=== PATIENT | male | born 1960 | race Caucasian/White ===

== ENCOUNTER → 2018-06-08 | Outpatient (CLI) | payer OTHER ==
[~2018-06-08] MED LIST: CEPH500C PO; CHOLESTEROL MED; OMEP-10 GT
--- NOTE | 2018-06-08 16:15 | Diagnostic Imaging Report ---
Indication: Evaluate for osteoporosis. Comparison: No prior studies are available for comparison. Exam: Bone mineral analysis of the lumbar spine and both hips was performed. Findings: Bone mineral density of the lumbar spine is 1.221 with T score of -0.2. Bone mineral density of the left femoral neck is 1.113 with T score 0.3. Bone mineral density right femoral neck is 0.995 with T score of -0.6. Impression: Findings consistent with normal bone mineral density of the lumbar spine and bilateral femoral necks. Dictated by: Dictated on workstation # [id number]
== END ==
LOC: RAD 09:17
PROVIDERS: ATTEND Internal Medicine
DX: M81.0 Age-related osteoporosis without current pathological fracture (principal)
CPT/HCPCS: 77080

== ENCOUNTER → 2018-10-02 | Outpatient (CLI) | payer OTHER ==
--- NOTE | 2018-10-02 09:46 | Diagnostic Imaging Report ---
INDICATION: Six week postop lumbar surgery. COMPARISON: None FINDINGS: Frontal and lateral radiographic views of the lumbar spine were obtained and show postsurgical changes of previous posterior fusion of L4 and L5. Bilateral interpedicular screws and posterior fusion rods are identified and appear to be intact. Interpedicular screws appear to be well-seated within their respective vertebral bodies. Intervertebral disc spacer material is also noted at L4-L5 and appears appropriately positioned. No unexpected radiopaque foreign bodies are seen. Static alignment demonstrates mild Grade 1 anterolisthesis of L4-L5. There is no prior available to confirm stability. There is no evidence of jumped facets. Vertebral body heights are maintained. There is no evidence of fracture. Mild multilevel degenerative changes are noted. Note is also made of calcified aortic atherosclerosis. IMPRESSION: 1. Postsurgical changes at L4-L5 as described above. No evidence of hardware fracture or failure. 2. Mild Grade 1 anterolisthesis at L4-5. 3. No evidence of acute fracture. Dictated by: Dictated on workstation # [id number]
== END ==
LOC: RAD 08:50
DX: M43.16 Spondylolisthesis, lumbar region (principal); M47.816 Spondylosis without myelopathy or radiculopathy, lumbar region; Z98.1 Arthrodesis status
CPT/HCPCS: 72100

== ENCOUNTER → 2018-10-16 | Outpatient (CLI) | payer OTHER ==
--- NOTE | 2018-10-16 09:32 | Diagnostic Imaging Report ---
INDICATION: Aortic atherosclerosis TECHNIQUE: Grayscale sonographic images of the abdominal aorta. CORRELATION STUDY: None FINDINGS: Portions of the aorta are partially obscured by overlying bowel gas. Abdominal Aorta Proximal: 2.0 x 1.9 cm, partially obscured by overlying bowel. Mid: 1.8 x 2.3 cm Distal: 1.6 x 1.8 cm Common Iliac Arteries Right MAMI: 1.0 x 1.9 cm Left MAMI: Not visualized, obscured by overlying bowel. IMPRESSION: 1. Negative for abdominal aortic aneurysm. Dictated by: Dictated on workstation # [id number]
== END ==
LOC: RAD 08:16
PROVIDERS: ATTEND Internal Medicine
DX: I70.0 Atherosclerosis of aorta (principal)
CPT/HCPCS: 76775

== ENCOUNTER 2018-11-11 19:39 | Inpatient (IN) | payer OTHER ==
[~2018-11-11] VITALS: Ht 182.9 cm; Wt 111.3 kg
--- NOTE | 2018-11-11 19:43 | NUR ---
Nursing staff notified of cardiac symptoms.
[2018-11-11] MEDS ORDERED: ENOXAPARIN 80 MG/0.8 ML (LOVENOX) SYR SC ONE (20:00)
[2018-11-11] MEDS ORDERED: ASPIRIN 81 MG CHEW (CHILDREN'S ASA) PO ONE (20:00)
[2018-11-11] MEDS ORDERED: DILTIAZEM 25 MG/5 ML INJ (CARDIZEM) VIAL IVP ONE (20:00)
[2018-11-11] MEDS ORDERED: DILTIAZEM INJECTION 125 MG in NS (IVPB) 100 ML IV SCH (20:00)
[2018-11-11] MEDS ORDERED: DILTIAZEM 125 MG/25 ML IV (CARDIZEM) IV ONE (20:02)
[2018-11-11 20:04] LABS: BASOPHILS % (AUTO) 0 % (0-10); EOSINOPHILS # (AUTO) 0.1 10^3/uL (0.0-0.3); EOSINOPHILS % (AUTO) 2 % (0-10); HEMATOCRIT 45 % (40-54); HEMOGLOBIN 15.3 G/DL (13.3-17.7); LYMPHOCYTES # (AUTO) 2.8 X 10^3 (1.0-4.0); LYMPHOCYTES % (AUTO) 34 % (12-44); MEAN CORPUSCULAR HEMOGLOBIN 31 PG (25-34); MEAN CORPUSCULAR HGB CONC 34 G/DL (32-36); MEAN CORPUSCULAR VOLUME 89 FL (80-99); MEAN PLATELET VOLUME 9.1 FL (7.4-10.4); MONOCYTES # (AUTO) 0.8 X 10^3 (0.0-1.0); MONOCYTES % (AUTO) 10 % (0-12); NEUTROPHILS # (AUTO) 4.5 X 10^3 (1.8-7.8); NEUTROPHILS % (AUTO) 54 % (42-75); PLATELET COUNT 219 10^3/uL (130-400); RED CELL DISTRIBUTION WIDTH 13.6 % (10.0-14.5); WHITE BLOOD COUNT 8.3 10^3/uL (4.3-11.0)
[2018-11-11] MEDS ORDERED: NS (IVPB) 100 ML ONE (20:04)
--- NOTE | 2018-11-11 20:11 | Diagnostic Imaging Report ---
INDICATION: Irregular heart rate EXAMINATION: Upright portable chest was obtained. FINDINGS: Cardiomegaly with no failure. The lungs are clear. There is no effusion or pneumothorax. There is no acute bony abnormality. IMPRESSION: Cardiomegaly. Dictated by: Dictated on workstation # [id number]
[2018-11-11 20:22] LABS: ALANINE AMINOTRANSFERASE 31 U/L (0-55); ALBUMIN 4.7 GM/DL (3.2-4.5); ALKALINE PHOSPHATASE 98 U/L (40-136); BILIRUBIN,TOTAL 0.5 MG/DL (0.1-1.0); BUN/CREATININE RATIO 13; CARBON DIOXIDE 19 MMOL/L (21-32); CHLORIDE 107 MMOL/L (98-107); CREATINE KINASE 134 U/L (30-200); CREATININE SERUM 0.97 MG/DL (0.60-1.30); GFR ESTIMATED > 60; GLUCOSE 103 MG/DL (70-105); MAGNESIUM 2.4 MG/DL (1.8-2.4); POTASSIUM 3.9 MMOL/L (3.6-5.0); SODIUM 143 MMOL/L (135-145); TOTAL PROTEIN 8.2 GM/DL (6.4-8.2)
[2018-11-11 20:28] LABS: INR 0.9 (0.8-1.4); PROTHROMBIN TIME PATIENT 12.9 SEC (12.2-14.7)
[2018-11-11 20:30] LABS: MYOGLOBIN SERUM 65.4 NG/ML (10.0-92.0)
[2018-11-11 20:42] LABS: CREATINE KINASE MB 3.7 NG/ML (<6.6); TSH (THYROID ANALYZER) 4.46 UIU/ML (0.35-4.94)
[2018-11-11] MEDS ORDERED: ENOXAPARIN 30 MG/0.3 ML (LOVENOX) SYR ONE (20:55)
[2018-11-11] MEDS ORDERED: ENOXAPARIN 30 MG/0.3 ML (LOVENOX) SYR SC ONE (21:00)
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
--- NOTE | 2018-11-11 22:32 | NUR ---
OLEG BRAVO Frieda admitted to room CU10-1, with an admitting diagnosis of Af RVR, on 11/11/18 from ED via Cart, accompanied by daughter.OLEG BRAVO introduced to surroundings, call light, bed controls, phone, TV, temperature control, lights, meal times, smoking policy, visitor policy, side rail policy, bathrooms and showers. Patient Rights given to patient in the handbook. OLEG BRAVO verbalizes understanding that [facility] is not responsible for the loss or damage to any personal effects or valuables that are kept in the patients possession during their hospitalization. The following Patient Care Plans were discussed with the patient: Discharge Planning, pain management,respiratory distress, and room orientation. OLEG BRAVO verbalizes understanding of Interdisciplinary Patient Education. Patient and/or family were informed about the Rapid Response Team and its purpose.
[2018-11-11 22:39] VITALS: BP 127/83
[2018-11-11] MEDS ORDERED: CATHETER FLUSH 10 ML SYR IV PRN (22:45)
[2018-11-11] MEDS ORDERED: DILTIAZEM 125 MG/NS 100 ML IV SCH ×2 (22:45)
[2018-11-11 23:00] VITALS: BP 116/81
[2018-11-11 23:45] VITALS: BP 116/71
[2018-11-12] VITALS (12 sets, daily range): BP systolic 108–117; BP diastolic 71–84
--- NOTE | 2018-11-12 01:58 | ED Cardiac General ---
History of Present Illness General Chief Complaint: Cardiac/General Problems Stated Complaint: NEW ONSET A FIB WITH RVR Nursing Triage Note: PT PRESENTS FROM HOME AMBULATORY, STATES HIS HEART BEGAN TO RACE AROUND 30 MINUTES AGO, SHORTLY AFTER DINNER. PT DENIES A PAST CARDIAC HX. HEART RATE NOTED 172 WHEN PLACED ON MONITORE. Source: patient Exam Limitations: no limitations History of Present Illness Date Seen by Provider: Nov 11, 2018 Time Seen by Provider: 19:45 Initial Comments PT ARRIVES VIA POV FROM HOME, WITH DAUGHTER C/O HEART RACING--BEGAN 30-45 MINUTES AGO, AFTER EATING DINNER NO CHEST PAIN NO SHORTNESS OF BREATH NO NAUSEA NO SWELLING IN LEGS/ FEET OR PAIN IN CALVES, OTHER THAN CHRONIC LEFT ANKLE SWELLING DUE TO OLD FRACTURE OF THAT ANKLE C/O VERY SLIGHT DIZZINESS NO COUGH OR RECENT ILLNESS OR FEVER PULSE WAS 152 AT HOME, WITH BP 140/90 NO HISTORY OF CARDIAC PROBLEMS, BUT STATES HE HAS HAD THIS FEELING OF HIS HEART RACING A FEW TIMES IN THE PAST, BUT NEVER SOUGHT CARE. PT HAD BACK SURGERY 09/16/18 IN [facility]--PT IS STILL WEARING HIS HOSPITAL ID BRACELET FROM THAT HOSPITALIZATION--STATES HE WAS TOLD HE NEEDED TO WEAR IT ALL THE TIME PT IS SCHEDULED TO HAVE LEFT KNEE SURGERY BY DR. KOENIG THIS Tuesday11/14/18. PCP: DR. MORTON ORTHOPEDIC SURGEON: --LOCALLY Allergies and Home Medications Allergies Coded Allergies: No Known Drug Allergies (Unverified , 08/18/10) Home Medications Cephalexin Monohydrate 500 Mg Capsule, 1 EACH PO TID Prescribed by: DESIRE HAYNES on 09/01/14 1131 Patient Home Medication List Home Medication List Reviewed: Yes Review of Systems Review of Systems Constitutional: no symptoms reported; No diaphoresis EENTM: No Symptoms Reported Respiratory: No Symptoms Reported Cardiovascular: See HPI; Denies Chest Pain, Denies Edema; Irregular Heart Rate , Lightheadedness, Palpitations; Denies Syncope Gastrointestinal: No Symptoms Reported Genitourinary: No Symptoms Reported Musculoskeletal: see HPI Skin: no symptoms reported Psychiatric/Neurological: No Symptoms Reported Endocrine: No Symptoms Reported Hematologic/Lymphatic: No Symptoms Reported Past Yvahblh-Cizxjv-Aoucpl Hx Patient Social History Alcohol Use: Occasionally Uses Recreational Drug Use: No Smoking Status: Never a Smoker Type Used: Smokeless Tobacco (QUIT CHEWING TOBACCO > 20 YEARS AGO) Recent Foreign Travel: No Contact w/Someone Who Travel: No Recent Infectious Disease Expo: No Immunizations Up To Date Date of Pneumonia Vaccine: Jun 13, 2018 Date of Influenza Vaccine: Jun 13, 2018 Seasonal Allergies Seasonal Allergies: No Past Medical History Surgeries: Yes (LUMBAR SPINE SURGERY 09/16/18 IN [facility]; MULTIPLE BILATERAL KNEE SCOPES; SCREENING COLONOSCOPY 2010) Orthopedic Respiratory: No Cardiac: Yes High Cholesterol Neurological: No Genitourinary: No Gastrointestinal: Yes Gastroesophageal Reflux Musculoskeletal: Yes (LUMBAR SPINE SURGERY 09/16/18; MULTIPLE BILATERAL KNEE SCOPES; CHRONIC KNEE PAIN; LEFT ANKLE FX) Chronic Back Pain, Fractures Endocrine: No HEENT: No Cancer: No Psychosocial: No Integumentary: No Blood Disorders: No Family Medical History Diabetes mellitus 19 MOTHER, Onset:Unknown FH: CVA (cerebrovascular accident) 19 MOTHER, Onset:Unknown FH: prostate cancer 19 FATHER, , Age:69, Onset:60 years & older FHx: neuropathy G8 SISTER, Onset:Unknown Physical Exam Vital Signs Vital Signs - First Documented 11/11/18 11/11/18 19:45 19:46 Temp 98.4 Pulse 172 Resp 22 B/P (MAP) 149/96 (113) Pulse Ox 96 O2 Delivery Room Air O2 Flow Rate 2.00 Capillary Refill : Less Than 3 Seconds Height, Weight, BMI Height: 6'0.00" Weight: 245lbs. 7.0oz. 111.158290mp; 33.3 BMI Method:Stated General Appearance: No Apparent Distress, WD/WN, Other (WEARING A BACK BRACE. ) HEENT: PERRL/EOMI Neck: Full Range of Motion, Normal Inspection, Non Tender, Supple; No Carotid Bruit, No JVD Respiratory: Normal Breath Sounds, No Accessory Muscle Use, No Respiratory Distress Cardiovascular: No JVD, No Murmur, Normal Peripheral Pulses, Irregularly Irregular, Tachycardia Gastrointestinal: Non Tender, Soft Extremity: Normal Capillary Refill, Normal Inspection, Normal Range of Motion, Non Tender, No Calf Tenderness, Pedal Edema (TRACE ON LEFT--CHRONIC, PER PT) Neurologic/Psychiatric: Alert, Oriented x3, No Motor/Sensory Deficits, Normal Mood/Affect, report programmer II-XII Norm as Tested Skin: Normal Color, Warm/Dry Progress/Results/Core Measures Results/Orders Lab Results Laboratory Tests Test 11/11/18 19:58 Range/Units White Blood Count 8.3 4.3-11.0 10^3/uL Red Blood Count 5.01 4.35-5.85 10^6/uL Hemoglobin 15.3 13.3-17.7 G/DL Hematocrit 45 40-54 % Mean Corpuscular Volume 89 80-99 FL Mean Corpuscular Hemoglobin 31 25-34 PG Mean Corpuscular Hemoglobin Concent 34 32-36 G/DL Red Cell Distribution Width 13.6 10.0-14.5 % Platelet Count 219 130-400 10^3/uL Mean Platelet Volume 9.1 7.4-10.4 FL Neutrophils (%) (Auto) 54 42-75 % Lymphocytes (%) (Auto) 34 12-44 % Monocytes (%) (Auto) 10 0-12 % Eosinophils (%) (Auto) 2 0-10 % Basophils (%) (Auto) 0 0-10 % Neutrophils # (Auto) 4.5 1.8-7.8 X 10^3 Lymphocytes # (Auto) 2.8 1.0-4.0 X 10^3 Monocytes # (Auto) 0.8 0.0-1.0 X 10^3 Eosinophils # (Auto) 0.1 0.0-0.3 10^3/uL Basophils # (Auto) 0.0 0.0-0.1 10^3/uL Prothrombin Time 12.9 12.2-14.7 SEC INR Comment 0.9 0.8-1.4 Activated Partial Thromboplast Time 30 24-35 SEC Sodium Level 143 135-145 MMOL/L Potassium Level 3.9 3.6-5.0 MMOL/L Chloride Level 107 98-107 MMOL/L Carbon Dioxide Level 19 L 21-32 MMOL/L Anion Gap 17 H 5-14 MMOL/L Blood Urea Nitrogen 13 7-18 MG/DL Creatinine 0.97 0.60-1.30 MG/DL Estimat Glomerular Filtration Rate > 60 BUN/Creatinine Ratio 13 Glucose Level 103 70-105 MG/DL Calcium Level 10.0 8.5-10.1 MG/DL Corrected Calcium 8.5-10.1 MG/DL Magnesium Level 2.4 1.8-2.4 MG/DL Total Bilirubin 0.5 0.1-1.0 MG/DL Aspartate Amino Transf (AST/SGOT) 27 5-34 U/L Alanine Aminotransferase (ALT/SGPT) 31 0-55 U/L Alkaline Phosphatase 98 40-136 U/L Total Creatine Kinase 134 30-200 U/L Creatine Kinase MB 3.7 <6.6 NG/ML Myoglobin 65.4 10.0-92.0 NG/ML Troponin I < 0.028 <0.028 NG/ML B-Type Natriuretic Peptide 12.5 <100.0 PG/ML Total Protein 8.2 6.4-8.2 GM/DL Albumin 4.7 H 3.2-4.5 GM/DL TSH [place] Testing 4.46 0.35-4.94 UIU/ML My Orders Orders - CT STEWART DO Saline Lock/Iv-Start (11/11/18 19:54) Aspirin Chewable Tablet (Baby Aspirin Ch (11/11/18 20:00) BNP (11/11/18:54) Cbc With Automated Diff (11/11/18:54) Comprehensive Metabolic Panel (11/11/18:54) Creatine Kinase (11/11/18:54) Creatine Kinase Mb (11/11/18 19:54) Magnesium (11/11/18:54) Protime With Inr (11/11/18:54) Partial Thromboplastin Time (11/11/18:54) Thyroid Analyzer (11/11/18:54) Troponin I (11/11/18 19:54) I-Stat Bedside Testing (11/11/18 19:54) Chest 1 View, Ap/Pa Only (11/11/18 19:54) Ekg Tracing (11/11/18:54) Cardiac Profile 1 (11/11/18 19:54) Myoglobin Serum (11/11/18:54) O2 (11/11/18 19:54) Monitor-Rhythm Ecg Trace Only (11/11/18 19:54) Saline Lock/Iv-Start (11/11/18 19:54) Enoxaparin Injection (Lovenox Injection) (11/11/18 20:00) Diltiazem Injection (Cardizem Injection) (11/11/18 20:00) Ns (Ivpb) (Sodium C... W/Diltiazem Injec (11/11/18 20:00) Diltiazem Iv For Drip (Cardizem Iv For D (11/11/18 20:02) Ns (Ivpb) (Sodium Chloride 0.9% Ivpb Bag (11/11/18 20:04) Ekg Tracing (11/11/18 20:35) Medications Given in ED Current Medications Medications Dose Ordered Sig/Kristyn Route Start Time Stop Time Status Last Admin Dose Admin Aspirin 325 mg ONCE ONCE PO 11/11/18 20:00 11/11/18 20:01 DC 11/11/18 20:05 325 MG Diltiazem HCl 20 mg ONCE ONCE IVP 11/11/18 20:00 11/11/18 20:01 DC 11/11/18 20:07 20 MG Enoxaparin Sodium 80 mg ONCE ONCE SC 11/11/18 20:00 11/11/18 20:01 DC 11/11/18 20:13 80 MG Vital Signs/I&O 11/11/18 11/11/18 11/11/18 19:45 19:46 20:28 Temp 98.4 Pulse 172 172 Resp 22 B/P (MAP) 149/96 (113) Pulse Ox 96 97 O2 Delivery Room Air Nasal Cannula O2 Flow Rate 2.00 Blood Pressure Mean: 90 Progress Progress Note : Progress Note HEART RATE IN 170'S ON ARRIVAL, WITH ATRIAL FIB/RVR ON MONITOR PT GIVEN CARDIZEM BOLUS AND PLACED ON CARDIZEM DRIP, WITH DECREASE IN HEART RATE TO 80-90'S, BUT STILL IN ATRIAL FIBRILLATION BP DOWN TO 110'S/ 70'S NO DETERIORATION IN PT'S CONDITION DURING ER STAY Initial ECG Impression Date: Nov 11, 2018 Initial ECG Impression Time: 19:51 Initial ECG Rate: 169 Initial ECG Rhythm: A Fib/Flutter (ATRIAL FIBRILLATION WITH RVR) Initial ECG Impression: Atrial Fibrillation w/RVR Initial ECG Comparisson: No Previous ECG Available EKG : EKG Time: 20:20 Rate: 105 Rhythm: A Fib/Flutter ECG Impression: Atrial Fibrillation Diagnostic Imaging Comments CXR--CARDIOMEGALY, NO ACUTE PROCESS, PER RADIOLOGIST REPORT AT 2019 Departure Communication (Admissions) 2034--SPOKE WITH DR. MOLINA, FIRE PATROL CHEMISTRY SPECIALIST. AGREES WITH PLAN OF CARE, WILL SEE PT IN CONSULT 2038--SPOKE WITH DR. BARRAZA, HOSPITALIST, ACCEPTS PT FOR ADMIT. Impression Primary Impression: NEW ONSET ATRIAL FIBRILLATION WITH RVR Disposition: ADMITTED INPATIENT Condition: Improved Admissions Decision to Admit Reason: Admit from ER (General) Decision to Admit/Date: Nov 11, 2018 Time/Decision to Admit Time: 20:40 Departure-Patient Inst. Referrals: ENID MORTON DO (PCP/Family) Primary Care Physician CT STEWART DO Nov 12, 2018 01:58
[2018-11-12 03:41] LABS: BASOPHILS % (AUTO) 0 % (0-10); EOSINOPHILS # (AUTO) 0.2 10^3/uL (0.0-0.3); EOSINOPHILS % (AUTO) 3 % (0-10); HEMATOCRIT 42 % (40-54); HEMOGLOBIN 14.3 G/DL (13.3-17.7); LYMPHOCYTES % (AUTO) 50 % (12-44); MEAN CORPUSCULAR HEMOGLOBIN 31 PG (25-34); MEAN CORPUSCULAR HGB CONC 34 G/DL (32-36); MEAN CORPUSCULAR VOLUME 89 FL (80-99); MEAN PLATELET VOLUME 9.5 FL (7.4-10.4); MONOCYTES # (AUTO) 0.6 X 10^3 (0.0-1.0); MONOCYTES % (AUTO) 10 % (0-12); NEUTROPHILS # (AUTO) 2.3 X 10^3 (1.8-7.8); NEUTROPHILS % (AUTO) 38 % (42-75); PLATELET COUNT 200 10^3/uL (130-400); RED CELL DISTRIBUTION WIDTH 13.5 % (10.0-14.5); WHITE BLOOD COUNT 6.1 10^3/uL (4.3-11.0)
[2018-11-12 04:07] LABS: ALANINE AMINOTRANSFERASE 28 U/L (0-55); ALBUMIN 4.1 GM/DL (3.2-4.5); ALKALINE PHOSPHATASE 84 U/L (40-136); BILIRUBIN,TOTAL 0.4 MG/DL (0.1-1.0); BUN/CREATININE RATIO 17; CARBON DIOXIDE 20 MMOL/L (21-32); CHLORIDE 110 MMOL/L (98-107); CHOLESTEROL 176 MG/DL (< 200); CREATININE SERUM 0.84 MG/DL (0.60-1.30); GFR ESTIMATED > 60; GLUCOSE 115 MG/DL (70-105); HDL CHOLESTEROL 38 MG/DL (40-60); MAGNESIUM 2.3 MG/DL (1.8-2.4); PHOSPHORUS 4.6 MG/DL (2.3-4.7); POTASSIUM 3.9 MMOL/L (3.6-5.0); SODIUM 144 MMOL/L (135-145); TOTAL PROTEIN 6.9 GM/DL (6.4-8.2); TRIGLYCERIDES 239 MG/DL (<150); VLDL CHOLESTEROL 48 MG/DL (5-40)
[2018-11-12] MEDS ORDERED: CATHETER FLUSH 10 ML SYR IV SCH (06:00)
--- NOTE | 2018-11-12 06:04 | Pulmonary Consultation ---
History of Present Illness History of Present Illness Date of Consultation 11/12/18 05:58 Time Seen by Provider: 06:06 Date of Admission Allergies and Home Medications Allergies Coded Allergies: No Known Drug Allergies (Unverified , 08/18/10) Home Medications Cephalexin Monohydrate 500 Mg Capsule, 1 EACH PO TID Prescribed by: DESIRE HAYNES on 09/01/14 1131 Past Ezlpsuf-Uvzjix-Eznaid Hx Patient Social History Alcohol Use: Occasionally Uses Recreational Drug Use: No Smoking Status: Never a Smoker Type Used: Smokeless Tobacco (QUIT CHEWING TOBACCO > 20 YEARS AGO) Recent Foreign Travel: No Contact w/Someone Who Travel: No Recent Infectious Disease Expo: No Immunizations Up To Date Date of Pneumonia Vaccine: Jun 13, 2018 Date of Influenza Vaccine: Jun 13, 2018 Seasonal Allergies Seasonal Allergies: No Past Medical History Surgeries: Yes (LUMBAR SPINE SURGERY 09/16/18 IN [facility]; MULTIPLE BILATERAL KNEE SCOPES; SCREENING COLONOSCOPY 2010) Orthopedic Respiratory: No Cardiac: Yes High Cholesterol Neurological: No Genitourinary: No Gastrointestinal: Yes Gastroesophageal Reflux Musculoskeletal: Yes (LUMBAR SPINE SURGERY 09/16/18; MULTIPLE BILATERAL KNEE SCOPES; CHRONIC KNEE PAIN; LEFT ANKLE FX) Chronic Back Pain, Fractures Endocrine: No HEENT: No Cancer: No Psychosocial: No Integumentary: No Blood Disorders: No Family Medical History Diabetes mellitus 19 MOTHER, Onset:Unknown FH: CVA (cerebrovascular accident) 19 MOTHER, Onset:Unknown FH: prostate cancer 19 FATHER, , Age:69, Onset:60 years & older FHx: neuropathy G8 SISTER, Onset:Unknown Review of Systems Time Seen by Provider: 06:06 Sepsis Event Evaluation Height, Weight, BMI Height: 6'0.00" Weight: 245lbs. 5.0oz. 111.088664vs; 33.3 BMI Method:Stated Exam Exam Vital Signs Date Time Temp Pulse Resp B/P (MAP) Pulse Ox O2 Delivery O2 Flow Rate FiO2 11/12/18 05:00 55 18 108/73 (85) 97 Nasal Cannula 2.00 11/12/18 04:00 58 18 117/76 (90) 96 Nasal Cannula 2.00 11/12/18 03:23 50 11/12/18 03:20 97.2 Nasal Cannula 2.00 11/12/18 03:20 95 Nasal Cannula 2.00 11/12/18 03:00 77 16 117/83 (94) 97 Nasal Cannula 2.00 11/12/18 02:00 87 18 116/71 (86) 93 Nasal Cannula 2.00 11/12/18 01:00 75 14 116/80 (92) 97 Nasal Cannula 2.00 11/12/18 01:00 80 11/12/18 00:30 87 20 116/77 (90) 96 Nasal Cannula 2.00 11/12/18 00:00 81 20 117/84 (95) 95 Nasal Cannula 2.00 11/11/18 23:49 Nasal Cannula 2.00 11/11/18 23:45 87 22 116/71 (86) 97 Nasal Cannula 2.00 11/11/18 23:35 96 Nasal Cannula 2.00 11/11/18 23:19 Nasal Cannula 2.00 11/11/18 23:00 107 13 116/81 (93) 96 Room Air 11/11/18 22:45 96 Room Air 11/11/18 22:40 129 11/11/18 22:39 98.2 108 16 127/83 (98) 96 Room Air 11/11/18 22:35 98.4 137 22 120/83 (95) 97 Room Air 2.00 11/11/18 20:28 172 11/11/18 19:46 97 Nasal Cannula 2.00 11/11/18 19:45 98.4 172 22 149/96 (113) 96 Room Air I & O 11/12/18 07:00 Intake Total 220 ml Output Total 775 ml Balance -555 ml Height & Weight Height: 6'0.00" Weight: 245lbs. 5.0oz. 111.965668mk; 33.3 BMI Method:Stated General Appearance: No Apparent Distress, WD/WN, Other (WEARING A BACK BRACE. ) HEENT: PERRL/EOMI Neck: Full Range of Motion, Normal Inspection, Non Tender, Supple; No Carotid Bruit, No JVD Respiratory: Normal Breath Sounds, No Accessory Muscle Use, No Respiratory Distress Cardiovascular: No JVD, No Murmur, Normal Peripheral Pulses, Irregularly Irregular, Tachycardia Capillary Refill: Less Than 3 Seconds Extremity: Normal Capillary Refill, Normal Inspection, Normal Range of Motion, Non Tender, No Calf Tenderness, Pedal Edema (TRACE ON LEFT--CHRONIC, PER PT) Neurologic/Psychiatric: Alert, Oriented x3, No Motor/Sensory Deficits, Normal Mood/Affect, basket person II-XII Norm as Tested Skin: Normal Color, Warm/Dry Results Lab Laboratory Tests 11/11/18 19:58 11/12/18 03:15 Assessment/Plan Assessment/Plan Afib RVR 170's -- New onset -Cardizem gtt -Cardiology consulted [facility] -Has home CPAP -PT follows with DR. Wilhelm for CPAP therapy Chronic back pain s/p multiple spinal surgeries CONSTANZA LOPEZ DO Nov 12, 2018 06:03
--- NOTE | 2018-11-12 07:47 | Short Stay Summary ---
History of Present Illness History of Present Illness Reason for visit/HPI 58 years old gentleman with history of multiple back surgeries, history of sleep apnea. Had the sudden onset of palpitation and felt his heart racing, came into the emergency room and noted to be in atrial fibrillation with rapid ventricular response. Patient was started on Cardizem drip, converted overnight to sinus rhythm, has been feeling well. Denied any chest pain. Denied any palpitation. Denied any syncope or near syncopal episodes since then. No previous cardiac history, had a stress test in 2016 which was normal. Patient drinks almost on a daily basis about one to 2 drinks daily. Date of Admission Nov 11, 2018 at 20:39 Date of Discharge November 12, 2018 Time Seen by Provider: 07:43 Attending Physician Angie Mac MD Admitting Physician Humberto Carr DO Consult Allergies and Home Medications Allergies Coded Allergies: No Known Drug Allergies (Unverified , 08/18/10) Home Medications Cephalexin Monohydrate 500 Mg Capsule, 1 EACH PO TID Prescribed by: DESIRE HAYNES on 09/01/14 1131 Patient Home Medication List Home Medication List Reviewed: Yes Past Akpnrrm-Ptrxwg-Qwhxhf Hx Patient Social History Marrital Status: Employed/Student: employed Alcohol Use: Occasionally Uses Alcohol Beverage of Choice: Beer, Scotch Recreational Drug Use: No Smoking Status: Never a Smoker Type Used: Smokeless Tobacco (QUIT CHEWING TOBACCO > 20 YEARS AGO) Recent Foreign Travel: No Contact w/other who traveled: No Recent Infectious Disease Expo: No Immunizations Up To Date Date of Pneumonia Vaccine: Jun 13, 2018 Date of Influenza Vaccine: Jun 13, 2018 Seasonal Allergies Seasonal Allergies: No Surgeries Yes (LUMBAR SPINE SURGERY 09/16/18 IN [facility]; MULTIPLE BILATERAL KNEE SCOPES ; SCREENING COLONOSCOPY 2010) Orthopedic Respiratory No Cardiovascular Yes High Cholesterol Neurological No Genitourinary No Gastrointestinal Yes Gastroesophageal Reflux Musculoskeletal Yes (LUMBAR SPINE SURGERY 09/16/18; MULTIPLE BILATERAL KNEE SCOPES; CHRONIC KNEE PAIN; LEFT ANKLE FX) Chronic Back Pain, Fractures Endocrine History of Endocrine Disorders: No HEENT History of HEENT Disorders: No Cancer No Psychosocial History of Psychiatric Problem: No Integumentary History of Skin or Integumenta: No Blood Transfusions History of Blood Disorders: No Family Medical History Family Hx: Diabetes mellitus 19 MOTHER, Onset:Unknown FH: CVA (cerebrovascular accident) 19 MOTHER, Onset:Unknown FH: prostate cancer 19 FATHER, , Age:69, Onset:60 years & older FHx: neuropathy G8 SISTER, Onset:Unknown Review of Systems Constitutional: no symptoms reported, see HPI EENTM: see HPI, no symptoms reported Respiratory: see HPI; No cough, No dyspnea on exertion, No hemoptysis, No orthopnea, No phlegm, No short of breath, No stridor, No wheezing, No other Cardiovascular: see HPI; No chest pain, No edema, No Hx of Intervention; palpitations; No syncope, No vascular heart diseas, No other Gastrointestinal: no symptoms reported, see HPI Genitourinary: no symptoms reported, see HPI Musculoskeletal: no symptoms reported, see HPI Skin: no symptoms reported, see HPI Psychiatric/Neurological: No Symptoms Reported, See HPI Physical Exam Vital Signs Vital Signs - First Documented 11/11/18 11/11/18 19:45 19:46 Temp 98.4 Pulse 172 Resp 22 B/P (MAP) 149/96 (113) Pulse Ox 96 O2 Delivery Room Air O2 Flow Rate 2.00 Capillary Refill : Less Than 3 Seconds Height, Weight, BMI Height: 6'0.00" Weight: 245lbs. 5.0oz. 111.015854zo; 33.3 BMI Method:Stated General Appearance: No Apparent Distress, WD/WN Eyes: Bilateral Eye Normal Inspection, Bilateral Eye PERRL, Bilateral Eye EOMI HEENT: PERRL/EOMI, TMs Normal, Normal ENT Inspection, Pharynx Normal Neck: Full Range of Motion, Normal Inspection, Non Tender, Supple, Carotid Bruit Respiratory: Chest Non Tender, Lungs Clear, Normal Breath Sounds, No Accessory Muscle Use, No Respiratory Distress Cardiovascular: Regular Rate, Rhythm, No Edema, No Gallop, No JVD, No Murmur, Normal Peripheral Pulses Gastrointestinal: Normal Bowel Sounds, No Organomegaly, No Pulsatile Mass, Non Tender, Soft Back: Normal Inspection, No CVA Tenderness, No Vertebral Tenderness Extremity: Normal Capillary Refill, Normal Inspection, Normal Range of Motion, Non Tender, No Calf Tenderness, No Pedal Edema Neurologic/Psychiatric: Alert, Oriented x3, No Motor/Sensory Deficits, Normal Mood/Affect Skin: Normal Color, Warm/Dry Lymphatic: No Adenopathy Clinical Quality Measures Admission Status Admission Status: Observation DVT/VTE Risk/Contraindication: Risk Factor Score Per Nursin RFS Level Per Nursing on Admit: 2=Moderate Short Stay Diagnosis Discharge Diagnosis-Short Stay Admission Diagnosis: acute atrial fibrillation Palpitation Tachycardia Obstructive sleep apnea Final Discharge Diagnosis: acute atrial fibrillation Palpitation Tachycardia Obstructive sleep apnea Conclusion Labs Laboratory Tests 11/11/18 19:58: White Blood Count 8.3, Red Blood Count 5.01, Hemoglobin 15.3, Hematocrit 45, Mean Corpuscular Volume 89, Mean Corpuscular Hemoglobin 31, Mean Corpuscular Hemoglobin Concent 34, Red Cell Distribution Width 13.6, Platelet Count 219, Mean Platelet Volume 9.1, Neutrophils (%) (Auto) 54, Lymphocytes (%) (Auto) 34, Monocytes (%) (Auto) 10, Eosinophils (%) (Auto) 2, Basophils (%) (Auto) 0, Neutrophils # (Auto) 4.5, Lymphocytes # (Auto) 2.8, Monocytes # (Auto) 0.8, Eosinophils # (Auto) 0.1, Basophils # (Auto) 0.0, Prothrombin Time 12.9, INR Comment 0.9, Activated Partial Thromboplast Time 30, Sodium Level 143, Potassium Level 3.9, Chloride Level 107, Carbon Dioxide Level 19L, Anion Gap 17H , Blood Urea Nitrogen 13, Creatinine 0.97, Estimat Glomerular Filtration Rate > 60, BUN/Creatinine Ratio 13, Glucose Level 103, Calcium Level 10.0, Corrected Calcium , Magnesium Level 2.4, Total Bilirubin 0.5, Aspartate Amino Transf (AST/ SGOT) 27, Alanine Aminotransferase (ALT/SGPT) 31, Alkaline Phosphatase 98, Total Creatine Kinase 134, Creatine Kinase MB 3.7, Myoglobin 65.4, Troponin I < 0.028, B-Type Natriuretic Peptide 12.5, Total Protein 8.2, Albumin 4.7H, TSH Ayer Testing 4.46 11/12/18 03:15: White Blood Count 6.1, Red Blood Count 4.66, Hemoglobin 14.3, Hematocrit 42, Mean Corpuscular Volume 89, Mean Corpuscular Hemoglobin 31, Mean Corpuscular Hemoglobin Concent 34, Red Cell Distribution Width 13.5, Platelet Count 200, Mean Platelet Volume 9.5, Neutrophils (%) (Auto) 38L, Lymphocytes (%) (Auto) 50H , Monocytes (%) (Auto) 10, Eosinophils (%) (Auto) 3, Basophils (%) (Auto) 0, Neutrophils # (Auto) 2.3, Lymphocytes # (Auto) 3.0, Monocytes # (Auto) 0.6, Eosinophils # (Auto) 0.2, Basophils # (Auto) 0.0, Sodium Level 144, Potassium Level 3.9, Chloride Level 110H, Carbon Dioxide Level 20L, Anion Gap 14, Blood Urea Nitrogen 14, Creatinine 0.84, Estimat Glomerular Filtration Rate > 60, BUN/ Creatinine Ratio 17, Glucose Level 115H, Calcium Level 9.0, Corrected Calcium 8.9, Magnesium Level 2.3, Total Bilirubin 0.4, Aspartate Amino Transf (AST/SGOT ) 20, Alanine Aminotransferase (ALT/SGPT) 28, Alkaline Phosphatase 84, Total Protein 6.9, Albumin 4.1, Phosphorus Level 4.6, Triglycerides Level 239H, Cholesterol Level 176, LDL Cholesterol Direct 108, VLDL Cholesterol 48H, HDL Cholesterol 38L Conclusion/Plan Acute atrial fibrillation, new onset, converted to sinus rhythm, maintained in sinus rhythm, I reassured him at this time, planning to evaluate 2-D echocardiogram. [id number] score of 0, yearly risk of stroke without oral anticoagulation is very low. Patient will be given Eliquis for 2 days then I instructed him to stop Eliquis from November 15 in preparation for his knee surgery Palpitation secondary to tachycardia, better at this time Obstructive sleep apnea for which he uses C Pap as an outpatient Obesity, BMI 33, we discussed weight loss History of moderate alcohol use, educated on avoiding alcohol products next Preoperative cardiac evaluation for knee surgery, patient is considered at low risk for perioperative cardiovascular complications, decision regarding the surgery, risks versus benefit is deferred to the surgeon, I initiated him on Eliquis today and instructed him to stop Eliquis from November 15, 2018. PRAKASH MOLINA MD Nov 12, 2018 07:47
[2018-11-12] MEDS ORDERED: APIX5TAB PO (08:52)
[2018-11-12] MEDS ORDERED: APIXABAN 5 MG (ELIQUIS) TABLET PO SCH (09:00)
[2018-11-12] MEDS ORDERED: ASPIRIN E.C. 325 MG (ECOTRIN) TABLET PO SCH (09:00)
[2018-11-12] MEDS ORDERED: ENOXAPARIN 100 MG/1 ML (LOVENOX) SYR SC SCH (09:00)
[2018-11-12] MEDS ORDERED: CETI10CA PO (09:14)
[2018-11-12] MEDS ORDERED: ATOR40TA70 PO (09:14)
--- NOTE | 2018-11-12 10:44 | NUR ---
OLEG BRAVO demonstrates understanding of discharge instructions and accurately returns instructions upon questioning. Copy of Post-Discharge Instructions and Medication Discharge Instructions given to PT. OLEG BRAVO is able to manage continuing needs after discharge. Patients belongings returned to PT. Skin dry and intact; no breakdown noted. Patient discharged from [facility] on 11/12/18 at 1044. OLEG BRAVO left floor via AMBULATION, accompanied by STAFF/FAMILY.
--- NOTE | 2018-11-12 13:11 | Diagnostic Imaging Report ---
INDICATION: New onset atrial fibrillation with rapid ventricular response. TECHNIQUE: Single view chest 3:29 AM. CORRELATION STUDY: 11/11/2018 FINDINGS: Heart size enlarged. Vasculature relatively stable. The lungs are clear with no consolidating infiltrate. There is no significant effusion or pneumothorax. IMPRESSION: 1. Stable cardiac enlargement without failure at followup. Dictated by: Dictated on workstation # [id number]
== END 2018-11-12 10:44 | disposition home or self-care (01) | DRG 310 ==
LOC: EDUNIT# 19:39 → ER 19:40 → ICU 20:39
PROVIDERS: ADMIT Family Medicine; ATTEND Family Medicine
DX: I48.91 Unspecified atrial fibrillation (principal); R00.2 Palpitations; R00.0 Tachycardia, unspecified; G47.33 Obstructive sleep apnea (adult) (pediatric); E66.9 Obesity, unspecified; Z68.33 Body mass index [BMI] 33.0-33.9, adult; Z72.89 Other problems related to lifestyle; E78.00 Pure hypercholesterolemia, unspecified; K21.9 Gastro-esophageal reflux disease without esophagitis; Z87.891 Personal history of nicotine dependence
CPT/HCPCS: 36415; 71045; 80053; 80061; 82550; 82553; 83735; 83874; 83880; 84100; 84443; 84484; 85025; 85610; 85730; 87081; 93005; 93041; 93306

== ENCOUNTER → 2018-11-14 | Outpatient (CLI) | payer OTHER ==
[~2018-11-14] MED LIST changes: +APIX5TAB PO; +ATOR40TA70 PO; +CETI10CA PO
--- NOTE | 2018-11-14 13:13 | Diagnostic Imaging Report ---
INDICATION: Degenerative disc disease lumbar spine. Posterior fusion. TECHNIQUE: AP, Lateral and Spot imaging of the lumbar spine CORRELATION STUDY: 10/02/2018 FINDINGS: Postop change of posterior fusion with transpedicular screws and connecting rods at L4-L5 level. Intervertebral disc spacer device also present. There is unchanged approximately 7 mm anterolisthesis of L4 on L5. The non-fused segment alignment stable, trace retrolisthesis L3 on L4, and L1 on L2. Slight anterior wedging at the lower thoracic vertebral bodies as well as L1 level. Mild endplate lipping. Disc spaces are unchanged with mild multilevel degenerative changes. Mild leftward curvature apex at the L2 level. Calcified aortic atherosclerosis is present. SI joints appear unremarkable. IMPRESSION: Stable appearing postop change of a posterior L4-5 lumbar spinal fusion. Unchanged mild, grade 1 spondylolisthesis of L4 on L5. Dictated by: Dictated on workstation # [id number]
== END ==
LOC: RAD 08:10
PROVIDERS: ATTEND Internal Medicine
DX: M43.16 Spondylolisthesis, lumbar region (principal); M51.36 Other intervertebral disc degeneration, lumbar region; Z98.1 Arthrodesis status
CPT/HCPCS: 72100

== ENCOUNTER 2018-11-16 10:19 | Outpatient (CLI) | payer OTHER ==
[~2018-11-16] VITALS: Ht 182.9 cm; Wt 111.1 kg
== END 2018-11-16 10:51 | disposition home or self-care (01) ==
LOC: PREOP 10:19
PROVIDERS: ATTEND Orthopaedic Surgery
DX: Z01.818 Encounter for other preprocedural examination (principal)

== ENCOUNTER 2018-11-22 08:46 | Day surgery (SDC) | payer OTHER ==
[~2018-11-22] VITALS: Ht 182.9 cm; Wt 111.1 kg
[2018-11-22 08:51] VITALS: BP 121/82
[2018-11-22] MEDS ORDERED: LACTATED RINGERS 1,000 ML IV PRN (09:05)
[2018-11-22] MEDS ORDERED: ceFAZolin INJECTION 1,000 MG in WATER (STERILE) FOR INJECTION 10 ML IV ONE (09:15)
[2018-11-22] MEDS ORDERED: morphine PF (DURAMORPH) 10 MG/10 ML AMP ONE (09:33)
[2018-11-22] MEDS ORDERED: BUPIVACAINE 0.25% 30 ML (SENSORCAINE) VIAL ONE (09:34)
--- NOTE | 2018-11-22 10:01 | Progress Note-Pre Operative ---
Pre-Operative Progress Note H&P Reviewed The H&P was reviewed, patient examined and no changes noted. 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
--- NOTE | 2018-11-22 10:02 | Progress Note-Post Operative ---
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
[2018-11-22] MEDS ORDERED: ONDANSETRON 4 MG/2 ML (SDV) Z0FRAN ONE (10:27)
[2018-11-22] MEDS ORDERED: fentaNYL INJECTION 100 MCG/2 ML AMP ONE (10:27)
[2018-11-22] MEDS ORDERED: LIDOCAINE PF 2% 5 ML (XYLOCAINE) VIAL ONE (10:27)
[2018-11-22] MEDS ORDERED: proPOfol 200 MG/20 ML (DIPRIVAN) VIAL IV ONE (10:27)
[2018-11-22] MEDS ORDERED: MIDAZOLAM 2 MG/2 ML (VERSED) VIAL ONE (10:27)
[2018-11-22] MEDS ORDERED: DEXAMETHASONE 10 MG/ML (DECADRON) 1 ML VIAL ONE (10:29)
[2018-11-22] MEDS ORDERED: SEVOFLURANE (ULTANE) 15 ML INHAL SOLN ONE ×3 (10:29→11:08)
[2018-11-22] MEDS ORDERED: HYDROcodone/APAP 7.5 MG/325 MG (LORTAB, LORCET PLUS) TABLET PO PRN (10:45)
[2018-11-22] MEDS ORDERED: ONDANSETRON 4 MG/2 ML (SDV) Z0FRAN IVP PRN (11:30)
[2018-11-22] MEDS ORDERED: morphine INJ 10 MG/ML 1ML (SYR OR VIAL) IVP ONE (11:30)
[2018-11-22 12:05] VITALS: BP 120/78
[2018-11-22 12:35] VITALS: BP 130/75
[2018-11-22] MEDS ORDERED: HYDR-34 PO (12:45)
[2018-11-22 13:05] VITALS: BP 128/78
[2018-11-22 13:08] VITALS: BP 128/78
--- NOTE | 2018-11-22 13:08 | NUR ---
HAS BEEN ALERT, CHEERFUL AND DENIES COMPLAINTS THROUGHOUT RECOVERY. STEPHANY WRAPPED DSG REMAINS D/I TO LEFT KNEE. CMS CHECKS WNL TO LEFT LEG. WAS UP WITH PHYSICAL THERAPIST FOR CRUTCH TRAINING. HAS CRUTCHES FROM HOME. STATES HE IS READY FOR DISMISSAL.
--- NOTE | 2018-11-22 13:47 | Physical Therapy Progress Note ---
Therapy Progress Note Received orders for PT. Pt has used crutches in the past and verbalized understanding of use. Pt was able to stand and walk a short distance safely with crutches. Reviewed exercises with patient, he demonstrated correct performance. Reviewed safety and ensured crutches were the appropriate height. Pt able to complete ther ex and safe with mobility Visit only, no charge PIPE ZAFAR PT Nov 22, 2018 13:47
--- NOTE | 2018-11-22 14:26 | Anesthesia-General Post-Op ---
General Patient Condition Mental Status/LOC: Same as Preop Cardiovascular: Satisfactory Nausea/Vomiting: Absent Respiratory: Satisfactory Pain: Controlled Complications: Absent Post Op Complications Complications None Follow Up Care/Instructions Patient Instructions None needed. Anesthesia/Patient Condition Patient Condition Patient is doing well, no complaints, stable vital signs, no apparent adverse anesthesia problems. No complications reported per nursing. JOSEPH HUTTON CRNA Nov 22, 2018 14:26
--- NOTE | 2018-11-22 14:47 | OPERATIVE REPORT ---
DATE OF SERVICE: 11/22/2018 PREOPERATIVE DIAGNOSES: 1. Left knee medial meniscus tear. 2. Left knee lateral meniscus tear. 3. Left knee chondromalacia of the medial femoral condyle. POSTOPERATIVE DIAGNOSES: 1. Left knee medial meniscus tear. 2. Left knee lateral meniscus tear. 3. Left knee chondromalacia of the medial femoral condyle. 4. Left knee chondromalacia of the lateral femoral condyle. PROCEDURES: 1. Left knee arthroscopic partial medial meniscectomy. 2. Left knee arthroscopic partial lateral meniscectomy. 3. Left knee arthroscopic chondroplasty of the medial femoral condyle. 4. Left knee arthroscopic chondroplasty of the lateral femoral condyle. SURGEON: Luiz Koenig MD STREET LIGHT WIRER: KIMBERLY Howell, who assisted throughout the procedure and closed the incisions. ANESTHESIA: General endotracheal by Renetta Russo CRNA. TOURNIQUET TIME: None applicable. DRAINS: None. COMPLICATIONS: None. POSTOPERATIVE PLANS: Routine arthroscopy protocol. The patient was transferred to the recovery room awake and in stable condition. STATEMENT OF MEDICAL NECESSITY: The patient is a 58-year-old gentleman who injured his left knee and had a posterior medial knee pain. An MRI revealed tears of the posterior horn, medial meniscus and lateral meniscus as well as chondromalacia of both compartments. Due to functional impairment and failure to improve with conservative measures, the patient elected to proceed with surgical intervention. Examination under anesthesia revealed range of motion 0/2/135 with negative Chelsea, negative anterior and posterior drawer. No varus valgus laxity, negative pivot shift. Arthroscopic findings, the patella and trochlea demonstrated no unstable chondral flaps. The medial and lateral gutters were clear. The medial compartment demonstrated grade II chondral flaps in the anterior aspect of the femoral condyle in a 10 x 15 area. The posterior horn of the medial meniscus demonstrated a tear at the 12 o'clock position involving approximately 20% of the posterior horn. The ACL and PCL were intact. The lateral compartment demonstrated grade III chondral flaps of the anterior aspect of the femoral condyle in a 10 x 15 area and a tear of the body in posterior horn involving approximately one-third of the posterior horn and body of the lateral meniscus. DESCRIPTION OF PROCEDURE: After risks and benefits of procedure were discussed and questions were answered, an informed consent was signed and placed on the chart. The operative site was confirmed in the preoperative holding area initialed by the surgeon. The patient was then transported to the operating room and after adequate levels of general endotracheal anesthetic were obtained, a timeout was called confirming the operative site. Examination under anesthesia was performed with above findings noted. The left lower extremity was prepped and draped in the usual sterile fashion. The knee joint was injected with 60 mL of fluid and standard inferolateral portals were placed with the arthroscope under direct visualization and inferior medial portal was created. The menisci and cruciates were carefully probed with the above findings noted. The unstable chondral flaps in the medial femoral condyle were debrided with shaver back to a stable edge. The posterior horn of the medial meniscus was debrided with the shaver removed approximately 20% of the posterior horn. The scope was redirected into the lateral compartment. The unstable chondral flaps and lateral femoral condyle were debrided with shaver back to a stable edge and the lateral meniscus tear in the body and posterior horn were debrided with a shaver back to stable edges. This was carefully probed with no further tearing or instability noted. The knee was copiously irrigated. The portal sites closed with 4-0 nylon in simple interrupted fashion. The knee was injected with Duramorph. The portal sites were infiltrated with plain Marcaine. A soft dressing was applied. The patient was transported to the recovery room awake and in stable condition. Job ID: [id number] DocumentID: [id number] Dictated Date: 11/22/2018 11:22:21 Surveillance Director Date: 11/22/2018 14:46:55 Dictated By: LUIZ KOENIG MD
== END 2018-11-22 13:08 | disposition home or self-care (01) ==
LOC: SDC 08:46
PROVIDERS: ATTEND Orthopaedic Surgery
DX: M23.252 Derangement of posterior horn of lateral meniscus due to old tear or injury, left knee (principal); M23.222 Derangement of posterior horn of medial meniscus due to old tear or injury, left knee; M94.262 Chondromalacia, left knee; Z11.2 Encounter for screening for other bacterial diseases; G47.33 Obstructive sleep apnea (adult) (pediatric); I48.91 Unspecified atrial fibrillation; E78.5 Hyperlipidemia, unspecified; E66.9 Obesity, unspecified; Z68.33 Body mass index [BMI] 33.0-33.9, adult; Z87.891 Personal history of nicotine dependence; Z79.899 Other long term (current) drug therapy; Z79.01 Long term (current) use of anticoagulants; Z98.1 Arthrodesis status
CPT/HCPCS: 87081

== ENCOUNTER → 2019-02-07 | Outpatient (CLI) | payer OTHER ==
[~2019-02-07] MED LIST changes: +HYDR-34 PO
== END ==
LOC: CARD 13:34
PROVIDERS: ATTEND Internal Medicine Cardiovascular Disease
DX: R00.2 Palpitations (principal); E78.1 Pure hyperglyceridemia; G47.33 Obstructive sleep apnea (adult) (pediatric)
CPT/HCPCS: 93351

== ENCOUNTER → 2019-11-06 | Outpatient (CLI) | payer OTHER ==
--- NOTE | 2019-11-06 08:13 | Diagnostic Imaging Report ---
INDICATION: History of lumbar spine fusion surgery TECHNIQUE: AP, Lateral and Spot imaging of the lumbar spine CORRELATION STUDY: 11/14/2018 FINDINGS: Since prior study, there has been additional hardware placed. There is now a posterior fusion including transpedicular screws and rods at L4, L5 and S1 level. Intervertebral spacer device at the L4-L5 level unchanged. There has been placement of anterior interbody hardware at the L5-S1 level. Unchanged mild anterolisthesis of L4 on L5. Trace retrolistheses of L3 on L4, L2 on L3. Lumbar vertebral body heights overall fairly well-maintained. Mild endplate lipping is noted particularly at the L1 and L2 levels. Vascular calcification abdominal aorta is present. IMPRESSION: Interval extension of the fusion hardware now including S1 as well as L5-S1 disc space. Alignment appears to be unchanged. Dictated by: Dictated on workstation # [id number]
== END ==
LOC: RAD 07:47
PROVIDERS: ATTEND Neurological Surgery
DX: M43.16 Spondylolisthesis, lumbar region (principal); Z98.1 Arthrodesis status
CPT/HCPCS: 72100

== ENCOUNTER → 2019-12-20 | Outpatient (CLI) | payer OTHER ==
--- NOTE | 2019-12-20 08:54 | Diagnostic Imaging Report ---
Lumbar spine 7:57. Indication: Lumbar fusion AP, lateral and spot lateral views were obtained. The prior exam of 11/06/2019 noted postsurgical changes consistent with a fusion of L4-L5 and L5-S1. On this study the orthopedic hardware at the L4-L5 and L5-S1 levels seen previously appears stable. As on the prior exam there is still slight anterior translation of L4 with respect to L5. The alignment of the other vertebral bodies is within normal limits and the other intervertebral spaces are fairly well-maintained. There is no fracture or acute bony abnormality noted. There is no sign of a paraspinal mass. Impression: The fusion of L4-L5 and L5-S1 seen previously appears stable. There is no acute bony abnormality noted. Dictated by: Dictated on workstation # [id number]
== END ==
LOC: RAD 07:27
PROVIDERS: ATTEND Neurological Surgery
DX: Z98.1 Arthrodesis status (principal)
CPT/HCPCS: 72100

== ENCOUNTER → 2020-06-23 | Outpatient (CLI) | payer MEDICARE, OTHER ==
--- NOTE | 2020-06-23 08:47 | Diagnostic Imaging Report ---
PROCEDURE: MR imaging cervical spine without contrast. TECHNIQUE: Multiplanar, multisequence MR imaging of the cervical spine was performed without contrast. DATE: June 23, 2020. COMPARISON: None. INDICATION: 59-year-old male, chronic neck pain. FINDINGS: There is anterior cervical spinal fusion hardware spanning C4 through C6 with associated hardware related artifact. The alignment of the cervical spine is grossly unremarkable. There is no evidence of a diffuse marrow infiltrating or replacing process. There is no identified focal concerning bone lesion. There is no identified abnormal signal in the visualized portions of the spinal cord. There is moderate to severe disc height loss at C6-C7. C2-C3: There is no disc bulge. The uncovertebral and facet joints are unremarkable. There is no foraminal narrowing. There is no spinal canal stenosis. C3-C4: There is no disc bulge. The uncovertebral and facet joints are unremarkable. There is no foraminal narrowing. There is no spinal canal stenosis. C4-C5: There is no disc bulge. The uncovertebral and facet joints are unremarkable. There is no foraminal narrowing. There is no spinal canal stenosis. C5-C6: There is abnormal low signal in the left neural foramen at the level of C5-C6, perhaps best illustrated on axial T2 sequence image 24. This potentially may relate to a disc extrusion versus scar material. There is associated severe narrowing of the left neural foramen. The uncovertebral and facet joints are unremarkable. There is right foraminal narrowing. There is no spinal canal stenosis. C6-C7: There is a posterior disc osteophyte complex. The uncovertebral and facet joints are unremarkable. There is mild to moderate right foraminal narrowing. There is no high-grade spinal canal stenosis. C7-T1: There is no disc bulge. The uncovertebral and facet joints are unremarkable. There is no foraminal narrowing. There is no spinal canal stenosis. There is a small central disc extrusion at T1-T2 and T3-T4 without foraminal or spinal stenosis. IMPRESSION: 1. Abnormal low signal in the left neural foramen at the level of C5-C6 which may relate to a disc extrusion and/or scar material. There is associated severe narrowing of the left neural foramen. 2. C6-C7 posterior disc/osteophyte complex with mild to moderate right foraminal narrowing at this level. 3. Small central disc protrusion at T1-T2 and T3-T4 without foraminal or spinal stenosis. 4. Anterior cervical spinal fusion hardware spanning C4 through C6. Dictated by: Dictated on workstation # [id number]
== END ==
LOC: RAD 08:00
PROVIDERS: ATTEND Neurological Surgery
DX: M50.123 Cervical disc disorder at C6-C7 level with radiculopathy (principal); M51.24 Other intervertebral disc displacement, thoracic region; M48.02 Spinal stenosis, cervical region
CPT/HCPCS: 72141

== ENCOUNTER 2020-07-12 11:45 | Emergency (ER) | payer MEDICARE, OTHER ==
[~2020-07-12] VITALS: Ht 167.7 cm; Wt 118.0 kg
[2020-07-12 13:14] LABS: BASOPHILS % (AUTO) 0 % (0-10); EOSINOPHILS # (AUTO) 0.2 10^3/uL (0.0-0.3); EOSINOPHILS % (AUTO) 3 % (0-10); HEMATOCRIT 42 % (40-54); HEMOGLOBIN 14.2 g/dL (13.3-17.7); LYMPHOCYTES # (AUTO) 2.2 10^3/uL (1.0-4.0); LYMPHOCYTES % (AUTO) 38 % (12-44); MEAN CORPUSCULAR HEMOGLOBIN 32 pg (25-34); MEAN CORPUSCULAR HGB CONC 34 g/dL (32-36); MEAN CORPUSCULAR VOLUME 94 fL (80-99); MONOCYTES # (AUTO) 0.7 10^3/uL (0.0-1.0); MONOCYTES % (AUTO) 11 % (0-12); NEUTROPHILS # (AUTO) 2.8 10^3/uL (1.8-7.8); NEUTROPHILS % (AUTO) 48 % (42-75); PLATELET COUNT 211 10^3/uL (130-400); WHITE BLOOD COUNT 5.9 10^3/uL (4.3-11.0)
--- NOTE | 2020-07-12 13:15 | ED Lower Extremity ---
General Chief Complaint: Lower Extremity Stated Complaint: RUNNY NOSE Nursing Triage Note: AMB TO ED WAS POSITIVE FOR THE WAS OUT OF QUARTINE ON 08/05 NOTICED LEG SWELLING OF R CALF. CONCERN THAT HE MAY HAVE BLOOD CLOT. SWELLING NOTED TO CALF OF LEG Nursing Sepsis Screen: No Definite Risk History of Present Illness Date Seen by Provider: Jul 12, 2020 Time Seen by Provider: 12:50 Initial Comments This is a well-appearing 59-year-old male who presents to the ER with complaints of right lower extremity swelling. States he does not know when his leg began swelling, but believes it may have started this past Tuesday. Described as camping sensation that sharp and intermittent. Rates 4 out of 10 at its worst. Denies any aggravating or alleviating factors. He notes that he is recently diagnosed with COVID and was released from isolation on 07/06/20. He denies any cough, shortness of breath, chest pain, nausea, vomiting, abdominal pain, loss of sensation, numbness, or tingling sensation of his lower ext. Allergies and Home Medications Allergies Coded Allergies: No Known Drug Allergies (Unverified , 08/18/10) Home Medications Apixaban 5 Mg Tablet, 5 MG PO BID Prescribed by: PRAKASH MOLINA on 11/12/18 0852 Apixaban 5 Mg Tablet, 10 MG PO BID Prescribed by: ERMA JOHNSON on 07/12/20 1456 Atorvastatin Calcium 40 Mg Tablet, 40 MG PO DAILY, (Reported) Cetirizine HCl 10 Mg Capsule, 10 MG PO DAILY, (Reported) Hydrocodone Bit/Acetaminophen 1 Ea Tablet, 1 EA PO Q4H PRN for PAIN-MODERATE Prescribed by: BETO DAUGHERTY on 11/22/18 1245 Patient Home Medication List Home Medication List Reviewed: Yes Review of Systems Constitutional: no symptoms reported EENTM: no symptoms reported Respiratory: no symptoms reported Cardiovascular: no symptoms reported Gastrointestinal: no symptoms reported Genitourinary: no symptoms reported Musculoskeletal: see HPI Skin: no symptoms reported Psychiatric/Neurological: No Symptoms Reported All Other Systems Reviewed Negative Unless Noted: Yes Past Yizofff-Yghcam-Biacvj Hx Patient Social History Alcohol Use: Occasionally Uses Number of Drinks Today: EE Alcohol Beverage of Choice: Beer, Scotch Recreational Drug Use: No Smoking Status: Never a Smoker Type Used: Smokeless Tobacco Recent Foreign Travel: No Contact w/Someone Who Travel: No Recent Infectious Disease Expo: No Recent Hopitalizations: Yes (november 11 for a-fib) Immunizations Up To Date Date of Pneumonia Vaccine: Jun 13, 2018 Date of Influenza Vaccine: Jun 13, 2018 Seasonal Allergies Seasonal Allergies: No Past Medical History Surgeries: Yes (R knee, L knee x3, bilat CTR, neck fusion, diskectomy, lumbar fusion) Orthopedic Respiratory: Yes Sleep Apnea Currently Using CPAP: Yes Cardiac: Yes (new onset A-fib October) Atrial Fibrillation, High Cholesterol Neurological: No Genitourinary: No Gastrointestinal: Yes Gastroesophageal Reflux Musculoskeletal: Yes (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) Arthritis, Chronic Back Pain, Fractures Endocrine: No HEENT: No Cancer: No Psychosocial: No Integumentary: No Blood Disorders: No Family Medical History Diabetes mellitus 19 MOTHER, Onset:Unknown FH: CVA (cerebrovascular accident) 19 MOTHER, Onset:Unknown FH: prostate cancer 19 FATHER, , Age:69, Onset:60 years & older FHx: neuropathy G8 SISTER, Onset:Unknown Physical Exam Vital Signs Vital Signs - First Documented 07/12/20 12:13 Temp 36.7 Pulse 73 Resp 18 B/P (MAP) 155/82 (106) Pulse Ox 95 O2 Delivery Room Air Capillary Refill : Less Than 3 Seconds Height, Weight, BMI Height: 6'0.00" Weight: 245lbs. 0.0oz. 111.913184kp; 41.00 BMI Method:Stated General Appearance: WD/WN, no apparent distress HEENT: normal ENT inspection, pharynx normal Neck: full range of motion, supple Cardiovascular: regular rate, rhythm, no murmur, other (RLE 18.5cm around mid- calf, LLE 17cm around mid-calf. No erythema or warmth appreciated of RLE. ) Respiratory: lungs clear, normal breath sounds, no respiratory distress Gastrointestinal: normal bowel sounds, non tender, soft Back: normal inspection, no vertebral tenderness Hips: bilateral hip non-tender, bilateral hip normal inspection, bilateral hip normal range of motion, bilateral hip no evidence of injury Legs: right leg pain, right leg soft tissue tenderness, right leg swelling, right leg other (Nate sign (+) ) Knees: bilateral knee non-tender, bilateral knee normal inspection, bilateral knee normal range of motion, bilateral knee no evidence of injury Ankles: bilateral ankle non-tender, bilateral ankle normal inspection, bilateral ankle normal range of motion, bilateral ankle no evidence of injury Neurologic/Tendon: normal sensation, normal motor functions, normal tendon functions Neurologic/Psychiatric: no motor/sensory deficits, alert, normal mood/affect, oriented x 3 Skin: normal color, warm/dry Progress/Results/Core Measures Results/Orders Lab Results Laboratory Tests Test 07/12/20 13:06 07/12/20 14:25 Range/Units White Blood Count 5.9 4.3-11.0 10^3/uL Red Blood Count 4.50 4.30-5.52 10^6/uL Hemoglobin 14.2 13.3-17.7 g/dL Hematocrit 42 40-54 % Mean Corpuscular Volume 94 80-99 fL Mean Corpuscular Hemoglobin 32 25-34 pg Mean Corpuscular Hemoglobin Concent 34 32-36 g/dL Red Cell Distribution Width 13.2 10.0-14.5 % Platelet Count 211 130-400 10^3/uL Mean Platelet Volume 9.0 9.0-12.2 fL Immature Granulocyte % (Auto) 0 % Neutrophils (%) (Auto) 48 42-75 % Lymphocytes (%) (Auto) 38 12-44 % Monocytes (%) (Auto) 11 0-12 % Eosinophils (%) (Auto) 3 0-10 % Basophils (%) (Auto) 0 0-10 % Neutrophils # (Auto) 2.8 1.8-7.8 10^3/uL Lymphocytes # (Auto) 2.2 1.0-4.0 10^3/uL Monocytes # (Auto) 0.7 0.0-1.0 10^3/uL Eosinophils # (Auto) 0.2 0.0-0.3 10^3/uL Basophils # (Auto) 0.0 0.0-0.1 10^3/uL Immature Granulocyte # (Auto) 0.0 0.0-0.1 10^3/uL Prothrombin Time 13.5 12.2-14.7 SEC INR Comment 1.0 0.8-1.4 Activated Partial Thromboplast Time 29 24-35 SEC D-Dimer 0.64 H 0.00-0.49 UG/ML Sodium Level 140 135-145 MMOL/L Potassium Level 4.0 3.6-5.0 MMOL/L Chloride Level 106 98-107 MMOL/L Carbon Dioxide Level 24 21-32 MMOL/L Anion Gap 10 5-14 MMOL/L Blood Urea Nitrogen 12 7-18 MG/DL Creatinine 0.96 0.60-1.30 MG/DL Estimat Glomerular Filtration Rate > 60 BUN/Creatinine Ratio 13 Glucose Level 98 70-105 MG/DL Calcium Level 8.4 L 8.5-10.1 MG/DL Corrected Calcium 8.2 L 8.5-10.1 MG/DL Total Bilirubin 0.8 0.1-1.0 MG/DL Aspartate Amino Transf (AST/SGOT) 22 5-34 U/L Alanine Aminotransferase (ALT/SGPT) 34 0-55 U/L Alkaline Phosphatase 83 40-136 U/L Creatine Kinase MB 3.4 <6.6 NG/ML Troponin I < 0.028 <0.028 NG/ML Total Protein 7.0 6.4-8.2 GM/DL Albumin 4.2 3.2-4.5 GM/DL Urine Color YELLOW Urine Clarity CLEAR Urine pH 6.0 5-9 Urine Specific [place] 1.020 1.016-1.022 Urine Protein NEGATIVE NEGATIVE Urine Glucose (UA) NEGATIVE NEGATIVE Urine Ketones NEGATIVE NEGATIVE Urine Nitrite NEGATIVE NEGATIVE Urine Bilirubin NEGATIVE NEGATIVE Urine Urobilinogen 1.0 < = 1.0 MG/DL Urine Leukocyte Esterase NEGATIVE NEGATIVE Urine RBC (Auto) NEGATIVE NEGATIVE Urine RBC NONE /HPF Urine WBC NONE /HPF Urine Crystals NONE /LPF Urine Bacteria NEGATIVE /HPF Urine Casts NONE /LPF Urine Mucus NEGATIVE /LPF Urine Culture Indicated NO My Orders Orders - ERMA JOHNSON MARKET MANAGER Cbc With Automated Diff (07/12/20 12:27) Comprehensive Metabolic Panel (07/12/20 12:27) Ua Culture If Indicated (07/12/20 12:27) Fibrin Degradation Products (07/12/20 12:27) Ekg Tracing (07/12/20 12:27) Protime With Inr (07/12/20 12:30) Partial Thromboplastin Time (07/12/20 12:30) Chest 1 View, Ap/Pa Only (07/12/20 13:25) Troponin I (07/12/20 13:25) Creatine Kinase Mb (07/12/20 13:26) Apixaban Tablet (Eliquis Tablet) (07/12/20 14:45) Medications Given in ED Current Medications Medications Dose Ordered Sig/Kristyn Route Start Time Stop Time Status Last Admin Dose Admin Apixaban 10 mg ONCE ONCE PO 07/12/20 14:45 07/12/20 14:46 DC 07/12/20 15:02 10 MG Vital Signs/I&O 07/12/20 07/12/20 12:13 15:00 Temp 36.7 Pulse 73 70 Resp 18 18 B/P (MAP) 155/82 (106) 160/90 Pulse Ox 95 98 O2 Delivery Room Air Blood Pressure Mean: 106 Progress Progress Note : Progress Note Ordered basic labs, coag studies including d-dimer, and cardiac workup. Labs reviewed and are unremarkable. Slight elevation in d-dimer noted at 0.64. Reviewed findings with the patient and discussed pros and cons of initiating Eliquis prophylactically until he can receive venous Doppler right lower extremity on Tuesday. States he has taken Eliquis in the past after he was diag nosed with A. fib, and has tolerated well. Opted to initiate treatment at this time. Reviewed discharge plan of care with him and he is agreeable to plan. Outpatient order for venous Doppler right lower extremity provided. Initial ECG Impression Date: Jul 12, 2020 Initial ECG Impression Time: 13:26 Initial ECG Rate: 69 Initial ECG Rhythm: Normal Sinus Initial ECG Intervals RBBB Initial ECG Comparisson: Unchanged Comment Compared to previous EKG from 11/12/2018 with no significant change. Diagnostic Imaging Diagonstic Imaging: Xray Plain Films/CT/US/NM/MRI: chest Comments NAME: OLEG BRAVO MED REC#: [id number] PT STATUS: REG ER : 1960 PHYSICIAN: ERMA JOHNSON APRN ADMIT DATE: 07/12/20/ER Signed Date of Exam:07/12/20 CHEST 1 VIEW, AP/PA ONLY EXAMINATION: Chest 1 view HISTORY: Chest pain COMPARISON: 11/12/2018 FINDINGS: The lungs are clear without edema or pneumonia. No pleural effusion or pneumothorax. Heart size is normal. IMPRESSION: 1. Clear lungs. Dictated by: Dictated on workstation # [id number] Dict: 07/12/20 1347 Trans: 07/12/20 1348 [facility] [id number] Interpreted by: FREDERICK ORDAZ MD Electronically signed by: FREDERICK ORDAZ MD 07/12/20 1348 Departure Impression Primary Impression: Right leg swelling Disposition: 01 HOME, SELF-CARE Condition: Stable/Unchanged Departure-Patient Inst. Decision time for Depature: 14:46 Referrals: ENID MORTON DO (PCP/Family) Primary Care Physician Patient Instructions: Deep Vein Thrombosis (Blood Clots in the Legs) (DC) Add. Discharge Instructions: Plan: 1. Discharge home with starter pack of Eliquis 10mg by mouth twice a day for 7 days. 2. Return to hospital on Tuesday at 7:30am to register for outpatient ultrasound of your right leg. 3. If you develop any severe headaches, vomiting, shortness of breath, chest lulú n, palpitations or any other new or concerning symptoms present immediately to the ER. 4. Rest, avoid strenuous activity. Keep legs elevated as much as you are able over the next week. All discharge instructions reviewed with patient and/or family. Voiced understanding. Scripts Apixaban (Eliquis) 5 Mg Tablet 10 MG PO BID for 7 Days, #14 TAB 0 Refills Prov: ERMA JOHNSON MARKET MANAGER 07/12/20 ERMA JOHNSON MARKET MANAGER Jul 12, 2020 13:15
[2020-07-12 13:27] LABS: ALBUMIN 4.2 GM/DL (3.2-4.5)
[2020-07-12 13:28] LABS: CHLORIDE 106 MMOL/L (98-107); SODIUM 140 MMOL/L (135-145)
[2020-07-12 13:29] LABS: CALCIUM 8.4 MG/DL (8.5-10.1)
[2020-07-12 13:30] LABS: GLUCOSE 98 MG/DL (70-105)
[2020-07-12 13:31] LABS: CARBON DIOXIDE 24 MMOL/L (21-32)
[2020-07-12 13:32] LABS: BILIRUBIN,TOTAL 0.8 MG/DL (0.1-1.0)
[2020-07-12 13:33] LABS: ALKALINE PHOSPHATASE 83 U/L (40-136)
[2020-07-12 13:34] LABS: CREATININE SERUM 0.96 MG/DL (0.60-1.30); FIBRIN DEGRADATION PRODUCTS 0.64 UG/ML (0.00-0.49); GFR ESTIMATED > 60; PROTHROMBIN TIME PATIENT 13.5 SEC (12.2-14.7)
[2020-07-12 13:35] LABS: BUN/CREATININE RATIO 13
[2020-07-12 13:37] LABS: ALANINE AMINOTRANSFERASE 34 U/L (0-55)
--- NOTE | 2020-07-12 13:49 | Diagnostic Imaging Report ---
EXAMINATION: Chest 1 view HISTORY: Chest pain COMPARISON: 11/12/2018 FINDINGS: The lungs are clear without edema or pneumonia. No pleural effusion or pneumothorax. Heart size is normal. IMPRESSION: 1. Clear lungs. Dictated by: Dictated on workstation # [id number]
[2020-07-12 14:38] LABS: BILIRUBIN,URINE NEGATIVE (NEGATIVE); CLARITY,URINE CLEAR; COLOR,URINE YELLOW; GLUCOSE, URINE (UA) NEGATIVE (NEGATIVE); KETONES,URINE NEGATIVE (NEGATIVE); LEUKOCYTE ESTERASE ,URINE NEGATIVE (NEGATIVE); NITRITE,URINE NEGATIVE (NEGATIVE); PROTEIN,URINE NEGATIVE (NEGATIVE)
[2020-07-12 14:45] LABS: BACTERIA,URINE NEGATIVE /HPF
[2020-07-12] MEDS ORDERED: APIXABAN 5 MG (ELIQUIS) TABLET PO ONE (14:45)
[2020-07-12] MEDS ORDERED: APIX5TAB PO (14:56)
[2020-07-12 15:00] VITALS: BP 160/90
== END 2020-07-12 15:00 | disposition home or self-care (01) ==
LOC: EDUNIT# 11:45 → ER 11:46
DX: M79.89 Other specified soft tissue disorders (principal); E78.00 Pure hypercholesterolemia, unspecified; G89.29 Other chronic pain; M54.9 Dorsalgia, unspecified; I48.91 Unspecified atrial fibrillation; Z83.3 Family history of diabetes mellitus; Z80.42 Family history of malignant neoplasm of prostate; Z79.01 Long term (current) use of anticoagulants; Z79.891 Long term (current) use of opiate analgesic
CPT/HCPCS: 36415; 71045; 80053; 81000; 82553; 84484; 85025; 85379; 85610; 85730; 93005

== ENCOUNTER → 2020-07-14 | Outpatient (CLI) | payer MEDICARE, OTHER ==
--- NOTE | 2020-07-14 09:32 | Diagnostic Imaging Report ---
PROCEDURE: US right lower extremity venous. TECHNIQUE: Multiple Real-time grayscale images were obtained over the right lower extremity in various projections. Additional spectral analysis and color Doppler duplex images were also obtained. INDICATION: Right leg pain x 1 week. FINDINGS: There is no evidence of a right lower extremity DVT. The right lower extremity deep venous system shows normal compressibility with normal response to augmentation and Valsalva. There is a complex mass in the popliteal fossa measuring 4.6 x 2.1 x 3.7 cm. No definite internal vascularity is seen. This may represent a complex cyst. IMPRESSION: 1. No evidence of right lower extremity DVT. 2. Complex popliteal mass, perhaps a complex popliteal cyst. Close followup would be recommended to confirm stability or resolution. MRI with and without IV contrast would be an additional consideration to further characterize this lesion. Dictated by: Dictated on workstation # [id number]
== END ==
LOC: RAD 08:00
PROVIDERS: ATTEND Nurse Practitioner Family
DX: R22.41 Localized swelling, mass and lump, right lower limb (principal); R79.1 Abnormal coagulation profile

== ENCOUNTER → 2020-10-20 | Outpatient (CLI) | payer MEDICARE, OTHER | LOC: LABNPT 06:06 | PROVIDERS: ATTEND Orthopaedic Surgery | DX: Z01.812 Encounter for preprocedural laboratory examination (principal); Z20.822 Contact with and (suspected) exposure to COVID-19 | CPT/HCPCS: 87635 ==

== ENCOUNTER → 2021-05-01 | Outpatient (CLI) | payer MEDICARE, OTHER | LOC: CARD 09:00 | PROVIDERS: ATTEND Internal Medicine Cardiovascular Disease | DX: I35.1 Nonrheumatic aortic (valve) insufficiency (principal); I11.9 Hypertensive heart disease without heart failure; I25.10 Atherosclerotic heart disease of native coronary artery without angina pectoris | CPT/HCPCS: 93306 ==

== ENCOUNTER → 2022-11-10 | Outpatient (CLI) | payer MEDICARE, OTHER | LOC: CARD 10:16 | PROVIDERS: ATTEND Internal Medicine Cardiovascular Disease | DX: I48.0 Paroxysmal atrial fibrillation (principal); R00.2 Palpitations | CPT/HCPCS: 93306 ==

== ENCOUNTER → 2022-12-08 | Outpatient (CLI) | payer MEDICARE, OTHER ==
[~2022-12-08] MED LIST changes: +CATHETER FLUSH 10 ML SYR IVP PRN
[2022-12-08 09:00] VITALS: BP 140/77
--- NOTE | 2022-12-08 13:47 | Cardiology Stress Test Report ---
Stress Test Report Date of Procedure/Referring: Date of Procedure: Dec 08, 2022 PCP Enid Carr DO Admitting Physician Admitting Physician: Attending Physician: Zoe Yuong Baseline Heart Rate: 66 Baseline Blood Pressure: Blood Pressure Systolic: 140 Blood Pressure Diastolic: 77 Vital Signs Date Time Temp Pulse Resp B/P (MAP) Pulse Ox O2 Delivery O2 Flow Rate FiO2 12/08/22 09:00 56 140/77 (98) Baseline Vital Signs Vital Signs Date Time Temp Pulse Resp B/P (MAP) Pulse Ox O2 Delivery O2 Flow Rate FiO2 12/08/22 09:00 56 140/77 (98) Baseline EKG: Baseline EKG: NSR Summary: After explaining the procedure and details to the patient, he signed the consent and was brought to the stress nuclear laboratory. Patient exercised on standard Yousuf protocol, EKG, heart rate and blood pressure were monitored continuously, resting and stress doses of radio tracer were injected, imaging was acquired and reviewed in the short axis, horizontal long axis and vertical long axis views Patient was able to exercise for a total of 10 minutes on Yousuf protocol, METs 11.7 Maximum heart rate 172 Maximum blood pressure 202/77 Stress EKG, Minimal nondiagnostic changes Recovery EKG, Return to baseline TID: 1.05 SSS: 1 SDS: 1 EF: 59 Conclusion: Excellent exercise tolerance for 10 minutes on standard Yousuf protocol, 11.7 METS achieving 100% of maximum expected heart rate Appropriate heart rate response to exercise with hypertensive response to exercise with peak blood pressure 202/77 return to baseline during recovery Nondiagnostic EKG changes with exercise return to baseline during recovery No ischemia or infarction noted on SPECT images Normal left ventricular size, ejection fraction 59% Copy Copies To 1: ENID CARR BASHAR J MD Dec 08, 2022 13:47
== END ==
LOC: CARD 07:12
PROVIDERS: ATTEND Internal Medicine Cardiovascular Disease
DX: R00.2 Palpitations (principal)
CPT/HCPCS: 78452; 93017; A9502

== ENCOUNTER 2022-12-23 06:37 | Outpatient (CLI) | payer MEDICARE, OTHER ==
[~2022-12-23] VITALS: Ht 182.9 cm; Wt 113.4 kg
[~2022-12-23 06:37] MED LIST changes: -CATHETER FLUSH 10 ML SYR IVP PRN
[2022-12-23] MEDS ORDERED: ASPI-808 PO (17:08)
[2022-12-23] MEDS ORDERED: DICL50TA6 PO (17:08)
== END 2022-12-23 17:18 | disposition home or self-care (01) ==
LOC: PREOP 06:37
PROVIDERS: ATTEND Specialist
DX: Z01.818 Encounter for other preprocedural examination (principal)

== ENCOUNTER 2022-12-31 09:12 | Day surgery (SDC) | payer MEDICARE, OTHER ==
[~2022-12-31] VITALS: Ht 182.9 cm; Wt 113.4 kg
[~2022-12-31 09:12] MED LIST changes: +ASPI-808 PO; +DICL50TA6 PO
[2022-12-31] MEDS ORDERED: MIDAZOLAM 2 MG/2 ML (VERSED) VIAL ONE (09:36)
[2022-12-31] MEDS: TETRACAINE 0.5% OPHTH SOLN 4 ML BTL (SINGLE DOSE ONLY) OU PRN ×4 (09:44→10:00)
[2022-12-31] MEDS ORDERED: TIMOLOL 0.5% (CATARACTS) 0.3 ML BTL OU PRN (09:45)
[2022-12-31] MEDS ORDERED: MOXIFLOXACIN OPHTH SOLN 5 MG/ML 0.3 ML SYRINGE OP ONE (09:45)
[2022-12-31] MEDS ORDERED: POVIDONE (BETADINE) OPHTH SOLN 5% 30 ML OP ONE (09:45)
[2022-12-31] MEDS: TROPICAMIDE 1% OPH SOLN (MYDRIACYL) 15 ML BTL OP SCH ×3 (09:50→10:00)
[2022-12-31] MEDS: PHENYLEPHRINE 10% OPHTH (NEO-SYN) 5 ML BTL OU SCH ×3 (09:50→10:00)
[2022-12-31 09:55] VITALS: BP 129/81
--- NOTE | 2022-12-31 10:29 | Ophthalmologist Pre-Op Note ---
Pre-Operative Progress Note H&P Reviewed The H&P was reviewed, patient examined and no changes noted. Date H&P Reviewed: December 31, 2022 Time H&P Reviewed: 10:29 Pre-Op Dx Cataract, Right Eye MILENA MERRILL MD December 31, 2022 10:29
--- NOTE | 2022-12-31 10:48 | Ophthalmology Operative Report ---
Cataract removal/placement IOL PREOPERATIVE DIAGNOSIS: Cataract Right Eye POSTOPERATIVE DIAGNOSIS: Cataract Right Eye PROCEDURE: Cataract removal and placement of posterior chamber implant, right eye SURGEON: Kit Merrill ANESTHESIA: Topical with sedation COMPLICATIONS: None ESTIMATED BLOOD LOSS: Minimal DESCRIPTION OF PROCEDURE: After proper informed consent was obtained, the patient, a 62 male, was taken to the Operating Room and the right eye was anesthetized with tetracaine. The right eye was then prepped and draped in the usual manner. A wire lid speculum was placed. A paracentesis was made at the left hand position. Preservative free lidocaine was injected into the anterior chamber followed by viscoelastic. A clear corneal incision was made in the temporal position. A capsulorrhexis was preformed and the central nuclear and cortical material were removed. The posterior capsule was polished and Valerio 19.5 [id number] IOL was placed into the capsular bag. The residual viscoelastic was aspirated and balanced saline solution was injected into the anterior chamber. Moxifloxacin was injected into the anterior chamber. The wound was checked and found to be water tight. The patient tolerated the procedure well without complications. KIT MERRILL MD December 31, 2022 10:48
[2022-12-31] MEDS ORDERED: acetaZOLAMIDE ER 500 MG CAP (DIAMOX SEQUELS) PO ONE (12:00)
--- NOTE | 2022-12-31 12:26 | Anesthesia-General Post-Op ---
MAC Patient Condition Mental Status/LOC: Same as Preop Cardiovascular: Satisfactory Nausea/Vomiting: Absent Respiratory: Satisfactory Pain: Controlled Complications: Absent Post Op Complications Complications None Follow Up Care/Instructions Patient Instructions None needed. Anesthesiology Discharge Order Discharge Order Patient is doing well, no complaints, stable vital signs, no apparent adverse anesthesia problems. No complications reported per nursing. RADHA KULKARNI CRNA December 31, 2022 12:25
== END 2022-12-31 10:56 | disposition home or self-care (01) ==
LOC: SDC 09:12
PROVIDERS: ATTEND Specialist
DX: H25.9 Unspecified age-related cataract (principal); G47.33 Obstructive sleep apnea (adult) (pediatric); Z99.81 Dependence on supplemental oxygen
CPT/HCPCS: 66984; V2632